=== PATIENT | female | born 1975 | race Caucasian/White ===

== ENCOUNTER 2016-10-09 16:07 | Emergency (ER) | payer OTHER ==
--- NOTE | 2016-10-09 17:01 | DIAGNOSTIC IMAGING REPORT ---
PROCEDURE: CT HEAD WITHOUT CONTRAST INDICATION: TRAUMA/INJURY TECHNIQUE: Axial CT images were acquired through the head. Coronal and sagittal reformations were created. COMPARISON: None. FINDINGS: No intracranial hemorrhage or extraaxial fluid collections. Ventricles are normal in size, shape and position. There is no mass, mass effect or midline shift. The zamora-white matter differentiation is normal. There is no edema. The calvarium is intact. There is a left tripod fracture involving the anterior, lateral graham of the left maxillary sinus. There is also a lateral orbital wall and a zygomatic arch fracture. There is fluid in the left maxillary sinus. IMPRESSION: 1. No CT evidence of acute intracranial process. 2. Left a tripod fracture. 2. Findings discussed with Dr. Brooks 05:[address] scans at this facility use dose modulation, iterative reconstruction, and/or weight-based dosing when appropriate to reduce radiation dose to as low as reasonably achievable.
--- NOTE | 2016-10-09 17:10 | DIAGNOSTIC IMAGING REPORT ---
PROCEDURE: CT SINUS/FACIAL BONES W/O CONT CLINICAL INDICATION: FACIAL TRAUMA TECHNIQUE: Noncontrast axial CT images through the sinuses. Coronal and sagittal reformations were created. COMPARISON: None. FINDINGS: There is a left a tripod fracture involving the lateral wall of the orbit, floor of the orbit, lateral and anterior graham of the left maxillary sinus as well as the zygomatic arch. There is a minimal displacement. There is blood in the left maxillary sinus. There is left periorbital edema. The globe is intact. IMPRESSION: 1. Left orbital tripod fracture. 2. Results were discussed with Dr. Brooks at 05:[address] scans at this facility use dose modulation, iterative reconstruction, and/or weight-based dosing when appropriate to reduce radiation dose to as low as reasonably achievable.
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
--- NOTE | 2016-10-09 20:20 | ED ORDER SUMMARY ---
..... Patient: ASUNCION BEAVERS OrderSheet [facility] VisitID: [id number] [place] [address] 41y, F Registration Date/Time: 10/09/2016 ORDER SHEET Weight: 63.5 kg (estimated) Allergies: Sulfa Antibiotics, Iodine GENERAL ORDERS: CT Head wo Cont Urgent (16:29 10/09/2016 JCoates) (Ack 16:37 OHernandez) (17:18 LWhalen R.N.) CT Sinus/Facial Bones wo Cont Urgent (16:32 10/09/2016 JCoates) (Ack 16:37 OHernandez) (17:18 LWhalen R.N.) CBC w Diff Urgent (16:32 10/09/2016 JCoates) (Ack 16:36 OHernandez) (17:18 LWhalen R.N.) CMP Urgent (16:32 10/09/2016 JCoates) (Ack 16:37 OHernandez) (17:18 LWhalen R.N.) Urine Urgent (16:32 10/09/2016 JCoates) (Ack 16:37 OHernandez) (18:24 LWhalen R.N.) UA-Culture if indicated Urgent (16:32 10/09/2016 JCoates) (Ack 16:37 OHernandez) (18:24 LWhalen R.N.) Consult - ENT (18:07 10/09/2016 JCoates) (18:31 OHcarmenzanandez) - (Please ambulate patient (Road test).) (19:57 10/09/2016 JCoates) (Ack 20:02 OSnell) (20:20 Myranda) MEDICATION ORDERS: Percocet PO 10/650 mg (NOW) (22:31 10/09/2016 JCoates) (Ack 22:46 CBradburn R.N.) (22:50 CBradburn R.N.) IV FLUIDS: IV NS with Normal Saline 1 Liter: initial bolus 1000 mL (1000 mL/hr), then 1000 mL/hr for X1 (NOW) (16:29 10/09/2016 JCoates) (17:18 LWhalen R.N.) IV Saline Lock (16:32 10/09/2016 JCoates) (Ack 17:18 LWhalen R.N.) (18:24 LWhalen R.N.) Zofran IV 8 mg (NOW) (18:07 10/09/2016 JCoates) (18:23 LWhalen R.N.) Naloxone IV 0.4 mg (NOW) (22:08 10/09/2016 JCoates) (Ack 22:14 CBradjohn R.N.) (22:47 Clem R.N.) ORDER SHEET NOTES: [Electronically signed by Armando Hayes (23:02 10/09/2016)] [Electronically signed by Julisa Liu R.N. (23:41 10/09/2016)] [Electronically locked/signed by Julisa Liu R.N. (23:41 10/09/2016)]
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
--- NOTE | 2016-10-09 20:20 | ED ORDER SUMMARY ---
..... Patient: ASUNCION BEAVERS OrderSheet [facility] VisitID: [id number] [place] [address] 41y, F Registration Date/Time: 10/09/2016 ORDER SHEET Weight: 63.5 kg (estimated) Allergies: Sulfa Antibiotics, Iodine GENERAL ORDERS: CT Head wo Cont Urgent (16:29 10/09/2016 JCoates) (Ack 16:37 OHernandez) (17:18 LWhalen R.N.) CT Sinus/Facial Bones wo Cont Urgent (16:32 10/09/2016 JCoates) (Ack 16:37 OHernandez) (17:18 LWhalen R.N.) CBC w Diff Urgent (16:32 10/09/2016 JCoates) (Ack 16:36 OHernandez) (17:18 LWhalen R.N.) CMP Urgent (16:32 10/09/2016 JCoates) (Ack 16:37 OHernandez) (17:18 LWhalen R.N.) Urine Urgent (16:32 10/09/2016 JCoates) (Ack 16:37 OHernandez) (18:24 LWhalen R.N.) UA-Culture if indicated Urgent (16:32 10/09/2016 JCoates) (Ack 16:37 OHernandez) (18:24 LWhalen R.N.) Consult - ENT (18:07 10/09/2016 JCoates) (18:31 OHcarmenzanandez) - (Please ambulate patient (Road test).) (19:57 10/09/2016 JCoates) (Ack 20:02 OSnell) (20:20 Myranda) MEDICATION ORDERS: Percocet PO 10/650 mg (NOW) (22:31 10/09/2016 JCoates) (Ack 22:46 CBradburn R.N.) (22:50 CBradburn R.N.) IV FLUIDS: IV NS with Normal Saline 1 Liter: initial bolus 1000 mL (1000 mL/hr), then 1000 mL/hr for X1 (NOW) (16:29 10/09/2016 JCoates) (17:18 LWhalen R.N.) IV Saline Lock (16:32 10/09/2016 JCoates) (Ack 17:18 LWhalen R.N.) (18:24 LWhalen R.N.) Zofran IV 8 mg (NOW) (18:07 10/09/2016 JCoates) (18:23 LWhalen R.N.) Naloxone IV 0.4 mg (NOW) (22:08 10/09/2016 JCoates) (Ack 22:14 CBradjohn R.N.) (22:47 Clem R.N.) ORDER SHEET NOTES: [Electronically signed by Armando Hayes (23:02 10/09/2016)] [Electronically signed by Julisa Liu R.N. (23:41 10/09/2016)] [Electronically locked/signed by Julisa Liu R.N. (23:41 10/09/2016)]
--- NOTE | 2016-10-09 23:41 | ED MAR SUMMARY ---
..... Medication Administration Record [facility] [address] [place] [address] Patient: ASUNCION BEAVERS Visit ID: [id number] 41y, F Weight: 63.5 kg Height/Length: 66 in BMI: 22.6 ALLERGIES: Iodine, Sulfa Antibiotics Start 17:18 10/09/2016 Keily Laird R.N., Stop 18:24 10/09/2016 Keily Laird R.N. Medication Administered: IV NS (SALINE), Dose: IV Fluids over 1 hour(s), Rate: 1000 mL/hr, Dispensed: 1000 mL bag, Site: #1 left forearm. Medication Ordered: IV NS with Normal Saline 1 Liter: initial bolus 1000 mL (1000 mL/hr), then 1000 mL/hr for X1 (NOW). Given 18:23 10/09/2016 Keily Laird R.N. Medication Administered: ZOFRAN [IVP] (ONDANSETRON HCL), Dose: 8 mg IVP over 2 minute(s), Site: #1 left forearm. Medication Ordered: Zofran IV 8 mg (NOW). Given 22:16 10/09/2016 Julisa Liu R.N. Medication Administered: NALOXONE [IVP], Dose: 0.4 mg IVP over 2 minute(s), Site: #1 left forearm. Medication Ordered: Naloxone IV 0.4 mg (NOW). Given 22:35 10/09/2016 Julisa Liu R.N. Medication Administered: PERCOCET [PO] (OXYCODONE-ACETAMINOPHEN), Dose: 2 tab 5/325 mg Tablets PO. Medication Ordered: Percocet PO 10/650 mg (NOW).
--- NOTE | 2016-10-09 23:41 | ED MED RECONCILIATION SUMMARY ---
Patient: ASUNCION BEAVERS Medication Reconciliation Report [facility] VisitID: [id number] [address] [place] [address] 41y, F Registration Date/Time: 10/09/2016 Weight: 63.5 kg Height/Length: 66 in. BMI: 22.6 ALLERGIES: Iodine, Sulfa Antibiotics The patient's Home Medications are listed below: THE FOLLOWING MEDICATIONS NEED TO BE RECONCILED: Heroin Milk Thistle Oral The source(s) of the original Home Medication information: Not obtained. The following Medications were given to the patient in the Emergency Department: IV NS IV Fluids bolus 0, then 1000 mL/hr, administered: 10/09/2016 5:18:00 PM Zofran [IVP] IVP 8 mg, administered: 10/09/2016 6:23:00 PM Naloxone [IVP] IVP 0.4 mg, administered: 10/09/2016 10:16:00 PM Percocet [PO] PO 2 tab, administered: 10/09/2016 10:35:00 PM The following Medications were prescribed to the patient: Adams 5 mg / 325 mg tablets: take 1 to 2 orally every 6 hours as needed for pain. Dispense five (5). No refill. Substitution is permissible. -- Armando Hayes Amoxicillin 500 mg capsules: take 1 orally every 6 hours for 7 days. No refills. -- Armando Hayes
--- NOTE | 2016-10-09 23:41 | ED MAR SUMMARY ---
..... Medication Administration Record [facility] [address] [place] [address] Patient: ASUNCION BEAVERS Visit ID: [id number] 41y, F Weight: 63.5 kg Height/Length: 66 in BMI: 22.6 ALLERGIES: Iodine, Sulfa Antibiotics Start 17:18 10/09/2016 Keily Laird R.N., Stop 18:24 10/09/2016 Keily Laird R.N. Medication Administered: IV NS (SALINE), Dose: IV Fluids over 1 hour(s), Rate: 1000 mL/hr, Dispensed: 1000 mL bag, Site: #1 left forearm. Medication Ordered: IV NS with Normal Saline 1 Liter: initial bolus 1000 mL (1000 mL/hr), then 1000 mL/hr for X1 (NOW). Given 18:23 10/09/2016 Keily Laird R.N. Medication Administered: ZOFRAN [IVP] (ONDANSETRON HCL), Dose: 8 mg IVP over 2 minute(s), Site: #1 left forearm. Medication Ordered: Zofran IV 8 mg (NOW). Given 22:16 10/09/2016 Julisa Liu R.N. Medication Administered: NALOXONE [IVP], Dose: 0.4 mg IVP over 2 minute(s), Site: #1 left forearm. Medication Ordered: Naloxone IV 0.4 mg (NOW). Given 22:35 10/09/2016 Julisa Liu R.N. Medication Administered: PERCOCET [PO] (OXYCODONE-ACETAMINOPHEN), Dose: 2 tab 5/325 mg Tablets PO. Medication Ordered: Percocet PO 10/650 mg (NOW).
--- NOTE | 2016-10-09 23:41 | ED MED RECONCILIATION SUMMARY ---
Patient: ASUNCION BEAVERS Medication Reconciliation Report [facility] VisitID: [id number] [address] [place] [address] 41y, F Registration Date/Time: 10/09/2016 Weight: 63.5 kg Height/Length: 66 in. BMI: 22.6 ALLERGIES: Iodine, Sulfa Antibiotics The patient's Home Medications are listed below: THE FOLLOWING MEDICATIONS NEED TO BE RECONCILED: Heroin Milk Thistle Oral The source(s) of the original Home Medication information: Not obtained. The following Medications were given to the patient in the Emergency Department: IV NS IV Fluids bolus 0, then 1000 mL/hr, administered: 10/09/2016 5:18:00 PM Zofran [IVP] IVP 8 mg, administered: 10/09/2016 6:23:00 PM Naloxone [IVP] IVP 0.4 mg, administered: 10/09/2016 10:16:00 PM Percocet [PO] PO 2 tab, administered: 10/09/2016 10:35:00 PM The following Medications were prescribed to the patient: Mchenry 5 mg / 325 mg tablets: take 1 to 2 orally every 6 hours as needed for pain. Dispense five (5). No refill. Substitution is permissible. -- Armando Hayes Amoxicillin 500 mg capsules: take 1 orally every 6 hours for 7 days. No refills. -- Armando Hayes
--- NOTE | 2016-10-09 23:41 | ED DISCHARGE INSTRUCTIONS ---
Patient: ASUNCION BEAVERS General Instructions [facility] VisitID: [id number] [address] [place] [place] [address] 41y, F Registration Date/Time: 10/09/2016 Closed displaced left orbit fracture. Accidental overdose with heroin. Closed head injury. INSTRUCTIONS No driving or operating machinery while taking sedating medication. No strenuous activity for five days. No dietary restrictions. (Do not blow your nose or sustain more trauma to your face until released by Dr. Colon.). Warnings: INFECTION: Watch for signs of infection (increasing heat and redness, pus-like drainage, swelling, or increased pain). Return or see your doctor if these signs occur. CONTROLLED SUBSTANCE WARNINGS. GENERAL WARNINGS: Return or contact your physician immediately if your condition worsens or changes unexpectedly, if not improving as expected, or if other problems arise. Specifically return if vomiting, breathing difficulty or fever worsens. Prescription Medications: Easley 5 mg / 325 mg tablets: take 1 to 2 orally every 6 hours as needed for pain. Dispense five (5). No refill. Substitution is permissible. Amoxicillin 500 mg capsules: take 1 orally every 6 hours for 7 days. No refills. Understanding of the discharge instructions verbalized by patient. Follow-up with: Ti Colon MD, ENT, , [facility], [address] [place] [address], [facility] Follow up in five days even if well. Call for the next available appointment. ADDITIONAL INFORMATION Head Injury With Wake-Up (Adult) You have had a head injury. It does not appear serious at this time. Symptoms of a more serious problem (concussion, bruising, or bleeding in the brain) may appear later. Therefore, watch for the WARNING SIGNS listed below. Home Care: During the next 24 hours someone must stay with you. This person should wake you every 2 hours to check for the signs below. If you have swelling of the face or scalp, apply an ice pack (ice cubes in a plastic bag, wrapped in a towel) for 20 minutes every 1-2 hours until the swelling starts to go down. Do not use aspirin or ibuprofen (Motrin, Advil) after a head injury. You may use acetaminophen (Tylenol) to control pain, unless another pain medicine was prescribed. [NOTE: If you have chronic liver or kidney disease or ever had a stomach ulcer or GI bleeding, talk with your doctor before using these medicines.] For the next 24 hours: Do not take alcohol, sedatives, or medicines that make you sleepy. Do not drive or operate machinery. Avoid strenuous activities. No lifting or straining. If you have had any symptoms of a concussion today (nausea, vomiting, dizziness, confusion, headache, memory loss, or you were knocked out), do not return to sports or any activity that could result in another head injury until all symptoms are gone and you have been cleared by your doctor. A second head injury before fully recovering from the first one can lead to serious brain injury. Follow Up with your doctor if symptoms are not improving after 24 hours, or as directed. [NOTE: A radiologist will review any X-rays or CT scans that were taken. We will notify you of any new findings that may affect your care.] Get Prompt Medical Attention if any of the following WARNING SIGNS occur: Repeated vomiting Severe or worsening headache or dizziness Unusual drowsiness, or unable to awaken as usual Confusion or change in behavior or speech, memory loss, blurred vision Convulsion (seizure) Increasing scalp or face swelling Redness, warmth or pus from the swollen area Fluid drainage or bleeding from the nose or ears Facial Fracture You have a break (fracture) in one of the bones of the face. A fracture can be small hairline crack in the bone with nothing out of place or a major break with a shifting of the bone out of position. Depending on the location a facial fracture can cause pain with chewing, nasal congestion, sinus pain, and nose bleeding. During the first 24 hours after injury, there may be further swelling or bruising at the site of the fracture or around your eyes. A blow to the face forceful enough to cause a fracture may also cause a concussion or more serious brain injury. Therefore, watch for the warning signs below. Home Care: Apply an ice pack (ice cubes in a plastic bag, wrapped in a towel) over the injured area for 20 minutes every 1-2 hours the first day. Continue with ice packs 3-4 times a day for the next two days, then as needed for the relief of pain and swelling. You may use acetaminophen (Tylenol) or ibuprofen (Motrin, Advil) to control pain, unless another pain medicine was prescribed. [NOTE: If you have chronic liver or kidney disease or ever had a stomach ulcer or GI bleeding, talk with your doctor before using these medicines.] Sleep with your head elevated on 2 or more pillows to reduce swelling. If you have facial pain when eating, avoid crunchy or chewy foods. A softer diet will be more comfortable for the first 2-3 weeks. If you were given antibiotics to prevent an infection, take them until the prescription is finished. If your nose bleeds, sit up and lean forward while pinching the nostrils together for five minutes (by the clock).If bleeding is not controlled, continue to pinch and call your doctor or return to this facility.Do not blow your nose for 12 hours after the bleeding stops. This will allow a strong blood clot to form. Do not pick your nose. Do not use ibuprofen, aspirin or similar drugs since this may promote nose bleeding. Follow Up with your doctor in one week, or as advised by our staff, to be sure the bone is healing properly. [NOTE: A radiologist will review any X-rays that were taken. We will notify you of any new findings that may affect your care.] Get Prompt Medical Attention if any of the following occur: Increasing facial swelling or pain Redness, warmth or pus from the injured area Fever of 100.4F (38C) or higher, or as directed by your healthcare provider Double vision Repeated vomiting Severe or worsening headache or dizziness Unusual drowsiness, or unable to awaken as usual Confusion or change in behavior or speech Convulsion (seizure) Accidental Ingestion:Non-Toxic [Adult] You have been evaluated and treated for taking too much of a medicine or swallowing a chemical product. There is no sign of toxic effect at this time. It is very unlikely that any new symptoms will appear. As a safeguard, you must be alert for symptoms during the next 24 hours (see below). The exact symptom will depend on what was swallowed. Home Care: If LIQUID CHARCOAL was given to neutralize what was swallowed, it will cause a black color to the stools for 1-2 days. Usually, a laxative (sorbitol) is given with charcoal to speed the removal of any toxins from the intestinal tract. This may cause diarrhea for up to 24 hours. If no laxative was given with charcoal, you may get constipated. If this occurs, you may take an cjyb-hfi-[id number] laxative such as Dulcolax pills or suppository. Prevention: Keep medicines, pesticides, and other household chemicals in their original containers. Clearly eddie all harmful products if a different bottle is used. Follow Up with your doctor if all symptoms do not resolve within 24 hours or if constipation is not relieved by one or two doses of laxatives. Get Prompt Medical Attention if any of the following occur: Excess drowsiness or inability to be awakened Rapid heart beat, shakiness or seizure Fast breathing (over 25 breaths/minute) or slow breathing (less than 8 breaths/minute) Feeling shortness of breath Fever of 100.4F (38C) or higher, or as directed by your healthcare provider Vomiting or diarrhea for more than 24 hours Blood in stools or vomit (black or red color) Chest or abdominal pain Dizziness, weakness or fainting Opiate Overdose You have been treated for an overdose of opiates (such as a prescription pain medicine or heroin).Taking too much opiates is dangerous because they cause breathing to slow and possibly stop.If you stop breathing for more than 2-3 minutes, your heart will stop and you will . If your overdose was severe, you may have received an antidote called Narcan (naloxone). The antidote effect lasts for about 1-2 hours.If the opiate has not left your system by the time the Narcan wears off your symptoms may return (such as drowsiness and slow breathing). If you were addicted and physically dependent on opiates, then Narcan may cause withdrawal symptoms to appear immediately.These may consist of body aches, diarrhea, abdominal cramps, nausea, vomiting, runny nose, sneezing, sweating, yawning, restlessness, irritability, or trembling.These symptoms will go away as the Narcan wears off. Home Care Rest for the next [address] or operate any vehicle or dangerous equipment until all narcotic effects have worn off and you are no longer feeling sleepy or drowsy. If you were previously prescribed narcotic medicines for pain, do not take any more of this medicine for the next 6-8 hours, unless told otherwise. If narcotics or other drugs were swallowed, you may have been given liquid charcoal to neutralize those drugs.The charcoal may cause nausea and vomiting over the next few hours. It will also cause a black color to your stools for the next 1-2 days. Usually, a laxative is given with charcoal to speed the removal of any toxins from the intestinal tract. This may cause diarrhea for up to 24 hours. If no laxative was given, there may be a tendency toward constipation. If this occurs, you may take an iptq-wcs-wjklfzd laxative such as Dulcolax pills or suppository, or Milk of Magnesia. Follow Up with your doctor if all symptoms do not resolve within 24 hours or if constipation is not relieved after two doses of laxatives.If your overdose was related to a drug addiction, seek drug counseling. Consider a drug treatment program to help you break your habit. Return Promptly or contact your doctor if any of the following occur: Excess drowsiness or inability to be awakened Slow breathing under 8 breaths per minute Shortness of breath or cough with colored sputum Fever over 100.4F (38.0C) oral Redness, swelling or tenderness at the heroin injection site Feeling that you might harm yourself or another Hydrocodone Bitartrate, Acetaminophen Oral tablet What is this medicine? ACETAMINOPHEN; HYDROCODONE (a set a TALAT kiah fen; judy droe KOE done) is a pain reliever. It is used to treat mild to moderate pain. How should I use this medicine? Take this medicine by mouth. Swallow it with a full glass of water. Follow the directions on the prescription label. If the medicine upsets your stomach, take the medicine with food or milk. Do not take more than you are told to take. Talk to your pasteurizing machine operator regarding the use of this medicine in children. This medicine is not approved for use in children. What side effects may I notice from receiving this medicine? Side effects that you should report to your doctor or health primary care sales representative as soon as possible: allergic reactions like skin rash, itching or hives, swelling of the face, lips, or tongue breathing problems confusion feeling faint or lightheaded, falls stomach pain yellowing of the eyes or skin Side effects that usually do not require medical attention (report to your doctor or health primary care sales representative if they continue or are bothersome): nausea, vomiting stomach upset What may interact with this medicine? alcohol antihistamines isoniazid medicines for depression, anxiety, or psychotic disturbances medicines for sleep muscle relaxants naltrexone narcotic medicines (opiates) for pain phenobarbital ritonavir tramadol What if I miss a dose? If you miss a dose, take it as soon as you can. If it is almost time for your next dose, take only that dose. Do not take double or extra doses. Where should I keep my medicine? Keep out of the reach of children. This medicine can be abused. Keep your medicine in a safe place to protect it from theft. Do not share this medicine with anyone. Selling or giving away this medicine is dangerous and against the law. Store at room temperature between 15 and 30 degrees C (59 and 86 degrees F). Protect from light. Keep container tightly closed. Throw away any unused medicine after the expiration date. Discard unused medicine and used packaging carefully. Pets and children can be harmed if they find used or lost packages. What should I tell my health care provider before I take this medicine? They need to know if you have any of these conditions: brain tumor Crohn's disease, inflammatory bowel disease, or ulcerative colitis drink more than 3 alcohol-containing drinks per day drug abuse or addiction head injury heart or circulation problems kidney disease or problems going to the bathroom liver disease lung disease, asthma, or breathing problems an unusual or allergic reaction to acetaminophen, hydrocodone, other opioid analgesics, other medicines, foods, dyes, or preservatives or trying to get breast-feeding What should I watch for while using this medicine? Tell your doctor or health primary care sales representative if your pain does not go away, if it gets worse, or if you have new or a different type of pain. You may develop tolerance to the medicine. Tolerance means that you will need a higher dose of the medicine for pain relief. Tolerance is normal and is expected if you take the medicine for a long time. Do not suddenly stop taking your medicine because you may develop a severe reaction. Your body becomes used to the medicine. This does NOT mean you are addicted. Addiction is a behavior related to getting and using a drug for a non-medical reason. If you have pain, you have a medical reason to take pain medicine. Your doctor will tell you how much medicine to take. If your doctor wants you to stop the medicine, the dose will be slowly lowered over time to avoid any side effects. You may get drowsy or dizzy when you first start taking the medicine or change doses. Do not drive, use machinery, or do anything that may be dangerous until you know how the medicine affects you. Stand or sit up slowly. There are different types of narcotic medicines (opiates) for pain. If you take more than one type at the same time, you may have more side effects. Give your health care provider a list of all medicines you use. Your doctor will tell you how much medicine to take. Do not take more medicine than directed. Call emergency for help if you have problems breathing. The medicine will cause constipation. Try to have a bowel movement at least every 2 to 3 days. If you do not have a bowel movement for 3 days, call your doctor or health primary care sales representative. Too much acetaminophen can be very dangerous. Do not take Tylenol (acetaminophen) or medicines that contain acetaminophen with this medicine. Many non-prescription medicines contain acetaminophen. Always read the labels carefully. Amoxicillin Trihydrate Oral tablet What is this medicine? AMOXICILLIN (a mox i NORMA in) is a penicillin antibiotic. It is used to treat certain kinds of bacterial infections. It will not work for colds, flu, or other viral infections. How should I use this medicine? Take this medicine by mouth with a glass of water. Follow the directions on your prescription label. You may take this medicine with food or on an empty stomach. Take your medicine at regular intervals. Do not take your medicine more often than directed. Take all of your medicine as directed even if you think your are better. Do not skip doses or stop your medicine early. Talk to your pasteurizing machine operator regarding the use of this medicine in children. While this drug may be prescribed for selected conditions, precautions do apply. What side effects may I notice from receiving this medicine? Side effects that you should report to your doctor or health primary care sales representative as soon as possible: allergic reactions like skin rash, itching or hives, swelling of the face, lips, or tongue breathing problems dark urine redness, blistering, peeling or loosening of the skin, including inside the mouth seizures severe or watery diarrhea trouble passing urine or change in the amount of urine unusual bleeding or bruising unusually weak or tired yellowing of the eyes or skin Side effects that usually do not require medical attention (report to your doctor or health primary care sales representative if they continue or are bothersome): dizziness headache stomach upset trouble sleeping What may interact with this medicine? amiloride control pills chloramphenicol macrolides probenecid sulfonamides tetracyclines What if I miss a dose? If you miss a dose, take it as soon as you can. If it is almost time for your next dose, take only that dose. Do not take double or extra doses. Where should I keep my medicine? Keep out of the reach of children. Store between 68 and 77 degrees F (20 and 25 degrees C). Keep bottle closed tightly. Throw away any unused medicine after the expiration date. What should I tell my health care provider before I take this medicine? They need to know if you have any of these conditions: asthma kidney disease an unusual or allergic reaction to amoxicillin, other penicillins, cephalosporin antibiotics, other medicines, foods, dyes, or preservatives or trying to get breast-feeding What should I watch for while using this medicine? Tell your doctor or health primary care sales representative if your symptoms do not improve in 2 or 3 days. Take all of the doses of your medicine as directed. Do not skip doses or stop your medicine early. If you are diabetic, you may get a false positive result for sugar in your urine with certain brands of urine tests. Check with your doctor. Do not treat diarrhea with [id number] products. Contact your doctor if you have diarrhea that lasts more than 2 days or if the diarrhea is severe and watery. You have been given the following additional information: HEAD INJURY with Wake-Up (Adult) Facial Fracture Overdose, Accidental (Adult) Overdose, Opiate Hydrocodone Bitartrate, Acetaminophen Oral tablet Amoxicillin Trihydrate Oral tablet No driving or operating machinery while taking sedating medication. No strenuous activity for five days. (Electronically signed by Armando Hayes, 10/09/2016 23:02)
== END 2016-10-09 22:40 | disposition home or self-care (01) ==
LOC: ED SRH 16:07
DX: S02.32XA Fracture of orbital floor, left side, initial encounter for closed fracture (principal); S09.90XA Unspecified injury of head, initial encounter; T40.1X1A Poisoning by heroin, accidental (unintentional), initial encounter; Y00.XXXA Assault by blunt object, initial encounter; Y93.89 Activity, other specified; Y99.9 Unspecified external cause status; Y92.009 Unspecified place in unspecified non-institutional (private) residence as the place of occurrence of the external cause; F11.10 Opioid abuse, uncomplicated; F17.210 Nicotine dependence, cigarettes, uncomplicated; Z88.1 Allergy status to other antibiotic agents
CPT/HCPCS: 90100; 95059